=== PATIENT | female | born 1985 | race Two or more races ===

== ENCOUNTER 2018-01-08 16:28 | Outpatient (CLI) | payer OTHER ==
[~2018-01-08 16:28] MED LIST: AMOX1TAB12 PO; FLEXERIL10 MG PO; INTESTINEX680 MG PO; MOTRIN800 MG PO; MUCINEX1200 MG/BO PO; OSEL75CA PO
== END 2018-01-08 16:49 | disposition home or self-care (01) ==
LOC: RAD 16:28
DX: S99.929A Unspecified injury of unspecified foot, initial encounter (principal)

== ENCOUNTER 2019-09-06 10:38 | Outpatient (CLI) | payer OTHER | END 2019-09-06 15:34 | disposition home or self-care (01) | LOC: SONOGRAMA 10:38 | DX: R87.820 Cervical low risk human papillomavirus (HPV) DNA test positive (principal) ==

== ENCOUNTER 2025-03-06 17:32 | Emergency (ER) | payer OTHER ==
[~2025-03-06] VITALS: Ht 157.5 cm; Wt 73.0 kg
[2025-03-06] MEDS ORDERED: PRENATE ELITE1 EAC2 PO (17:42)
[2025-03-06 19:10] LABS: BASO % 0.3 % (0.1-1.2); EOS # 0.06 (0.04-0.54); EOS % 0.4 % (0.7-7.0); LYMPH # 2.40 (1.18-3.74); LYMPH % 15.1 % (19.3-53.1); MEAN PLATELET VOLUME 10.40 fl (9.4-12.4); MONO # 0.87 (0.24-0.82); MONO % 5.5 % (4.7-12.5); NEUT # 12.31 (1.56-6.13); NEUT % 77.3 % (34.0-71.1); RED CELL DISTRIBUTION WIDTH 13.2 % (11.6-14.4)
[2025-03-06 20:56] LABS: URINE APPEARANCE Clear; URINE BILIRRUBIN Negative (NEGATIVE); URINE BLOOD NHT; URINE COLOR Yellow; URINE GLUCOSE Negative (NEGATIVE); URINE KETONE Trace (NEGATIVE); URINE LEUKOCYTE Negative; URINE NITRATE Negative; URINE PROTEIN Negative (NEGATIVE); URINE UROBILINOGEN 1.0 E.U./dl
[2025-03-06 20:59] LABS: URINE BACTERIA 238.7 uL (0.0-1933); URINE EPITHELIAL CELLS 19.5 uL (0.0-38.8); URINE RBC 14.8 uL (0.0-20.8); URINE WBC 9.9 uL (0.0-23.2)
[2025-03-06 21:07] LABS: URINE CAST 0.00 uL (0.0-1.40)
== END 2025-03-06 21:46 | disposition home or self-care (01) ==
LOC: ER 17:32
PROVIDERS: General Practice
DX: O20.8 Other hemorrhage in early pregnancy (principal); Z3A.15 15 weeks gestation of pregnancy

== ENCOUNTER 2025-05-09 13:14 | Inpatient (IN) | payer OTHER ==
[~2025-05-09] VITALS: Ht 157.5 cm; Wt 78.9 kg
[~2025-05-09 13:14] MED LIST changes: +PRENATE ELITE1 EAC2 PO
[2025-05-09] MEDS ORDERED: CEFOXITIN SODIUM 2,000 MG VIAL IV SCH (13:30)
[2025-05-09] MEDS ORDERED: CITRIC ACID/SODIUM CITRATE 30 ML BLIST.PACK PO NR (13:30)
[2025-05-09] MEDS ORDERED: MAGNESIUM SULFATE IN WATER 4 GM/100 ML PIGGYBACK IV ONE (13:30)
[2025-05-09] MEDS ORDERED: RINGERS SOLUTION,LACTATED 1,000 ML IV SCH (13:30)
[2025-05-09] MEDS ORDERED: MAGNESIUM SULFATE IN WATER 500 ML IV SCH (13:30)
[2025-05-09 13:37] VITALS: BP 108/67
[2025-05-09 15:14] LABS: ALT/SGPT 60.0 U/L (12-78); AST/SGOT 39.0 U/L (15-37); BILIRUBIN TOTAL 0.22 mg/dL (0.3-1.2); BUN CREA RATIO 13.0 (7.0-25.0); CREATININE SERUM 0.55 mg/dL (0.55-1.02); GFR 124.37; GLOBULINA 3.5 G/DL (2.4-3.5); GLUCOSE FASTING 69.0 mg/dL (65-100); OSMOLALITY SERUM 276.0 MOSM/KG (275-295)
[2025-05-09 15:20] VITALS: BP 100/66
[2025-05-09 15:29] LABS: INR 0.94
[2025-05-09 16:11] LABS: BASO % 0.4 % (0.1-1.2); EOS # 0.04 (0.04-0.54); EOS % 0.2 % (0.7-7.0); LYMPH # 1.83 (1.18-3.74); LYMPH % 10.8 % (19.3-53.1); MEAN PLATELET VOLUME 11.30 fl (9.4-12.4); MONO # 0.88 (0.24-0.82); MONO % 5.2 % (4.7-12.5); NEUT # 13.47 (1.56-6.13); NEUT % 79.6 % (34.0-71.1); RED CELL DISTRIBUTION WIDTH 13.3 % (11.6-14.4)
[2025-05-09 20:19] VITALS: BP 103/66
[2025-05-09 23:16] VITALS: BP 100/63
[2025-05-10 02:49] VITALS: BP 94/59
[2025-05-10 08:16] VITALS: BP 100/64
[2025-05-10] MEDS ORDERED: CITRIC ACID/SODIUM CITRATE 30 ML BLIST.PACK PO ONE (12:37)
[2025-05-10] MEDS ORDERED: POVIDONE-IODINE 118 ML BOTT TOP ONE (12:57)
[2025-05-10] MEDS ORDERED: DOCUSATE SODIUM 100MG CAP PO SCH (14:35)
[2025-05-10] MEDS ORDERED: KETOROLAC TROMETHAMINE 30 MG VIAL IV SCH (14:35)
[2025-05-10] MEDS ORDERED: ACETAMINOPHEN 325 MG TABLET PO SCH (14:35)
[2025-05-10] MEDS ORDERED: AZITHROMYCIN 500 MG TABLET PO SCH (14:39)
[2025-05-10] MEDS ORDERED: MAGNESIUM SULFATE IN WATER 0.04 GM/ML IV.SOLN IV ONE (18:51)
[2025-05-10 19:50] VITALS: BP 106/66
[2025-05-10 23:38] VITALS: BP 109/69
[2025-05-11 03:40] VITALS: BP 107/64; O2SAT 98
[2025-05-11 06:33] VITALS: BP 103/62; O2SAT 97
[2025-05-11 12:23] VITALS: BP 100/62; O2SAT 98
[2025-05-11 15:21] VITALS: BP 109/72
[2025-05-11 20:00] VITALS: BP 99/63
[2025-05-11 23:35] VITALS: BP 96/69
[2025-05-12 03:36] VITALS: BP 100/57; O2SAT 97
[2025-05-12 06:50] VITALS: BP 93/54; O2SAT 99
[2025-05-12] MEDS ORDERED: NIFEDIPINE 60 MG TAB.SA.OSM PO SCH (09:00)
[2025-05-12 11:43] VITALS: BP 107/68
[2025-05-12 16:15] VITALS: BP 100/64
[2025-05-13 02:04] VITALS: BP 100/60
[2025-05-13 08:55] VITALS: BP 100/64
[2025-05-13 16:00] VITALS: BP 114/71
[2025-05-14 00:14] VITALS: BP 105/63
[2025-05-14 09:34] VITALS: BP 99/68
[2025-05-14 17:05] VITALS: BP 98/60
[2025-05-15 03:00] VITALS: BP 97/60
[2025-05-15 08:45] VITALS: BP 108/70
[2025-05-15 16:22] VITALS: BP 101/65
[2025-05-16] VITALS: BP 97/62
[2025-05-16 11:26] VITALS: BP 114/71
[2025-05-16 15:43] VITALS: BP 114/74
== END 2025-05-16 16:36 | disposition home or self-care (01) | DRG 819 ==
LOC: LDR 13:14 → O/R 13:14 → OB/GYN 05-10 17:38 → O/R 05-10 18:46 → LDR 05-10 20:21 → OB/GYN 05-12 10:46
PROVIDERS: ADMIT Obstetrics & Gynecology; ATTEND Obstetrics & Gynecology
PROC: 4A1HXCZ Monitoring of Products of Conception, Cardiac Rate, External Approach (ICD-10-PCS; 2025-05-09)
PROC: 0UVC7ZZ Restriction of Cervix, Via Natural or Artificial Opening (ICD-10-PCS; principal; 2025-05-10 15:45)
PROC: BY4CZZZ Ultrasonography of Second Trimester, Single Fetus (ICD-10-PCS; 2025-05-16)
PROC: BU4CZZZ Ultrasonography of Uterus and Ovaries (ICD-10-PCS; 2025-05-16)
DX: O34.32 Maternal care for cervical incompetence, second trimester (principal); O26.842 Uterine size-date discrepancy, second trimester; O36.8120 Decreased fetal movements, second trimester, not applicable or unspecified; Z3A.24 24 weeks gestation of pregnancy; Z37.0 Single live birth